=== PATIENT | female | born 1940 | race Caucasian/White ===

== ENCOUNTER 2018-03-18 09:09 | Day surgery (SDC) | payer OTHER ==
[2018-03-18] MEDS: TETRACAINE 0.5% UNIT-DOSE OP PRN ×2 (10:10→10:49)
[2018-03-18] MEDS: BETADINE OPTH PREP OP PRN ×2 (10:10→10:49)
[2018-03-18] MEDS: CYCLOGYL 2% OPTH OP PRN ×3 (10:11→10:21)
[2018-03-18] MEDS ORDERED: DEX-MOXI-KETOR OPTH INJ 1/0.5/0.4 MG/ML IO ONE (10:19)
[2018-03-18] MEDS ORDERED: ZOFRAN 4 MG/2 ML IVP ONE (10:19)
[2018-03-18] MEDS ORDERED: BSS WITH EPINEPHRINE OP ONE (10:19)
[2018-03-18] MEDS ORDERED: BRIMONIDINE TARTRATE 0.2% OPTH SOL OP PRN (10:19)
[2018-03-18] MEDS ORDERED: LIDOCAINE 1%/PHENYLEPHRINE 1.5% BSS (SURGERY) INTRAOCULA ONE (10:19)
[2018-03-18] MEDS ORDERED: LIDOCAINE 1% 20 ML MDV ID STA (10:19)
[2018-03-18] MEDS ORDERED: VERSED ONE (11:10)
[2018-03-18] MEDS ORDERED: SUBLIMAZE ONE (11:10)
[2018-03-18 15:31] VITALS: BP 121/67
[2018-03-20 12:02] VITALS: TEMP 98.6
== END 2018-03-18 12:10 | disposition home or self-care (01) ==
LOC: SURG 09:09
PROVIDERS: ATTEND Ophthalmology
DX: H25.812 Combined forms of age-related cataract, left eye (principal)

== ENCOUNTER 2018-04-01 08:34 | Day surgery (SDC) ==
[2018-04-01] MEDS: TETRACAINE 0.5% UNIT-DOSE OP PRN ×2 (10:00→10:27)
[2018-04-01] MEDS: BETADINE OPTH PREP OP PRN ×2 (10:00→10:27)
[2018-04-01] MEDS: CYCLOGYL 2% OPTH OP PRN ×3 (10:01→10:11)
[2018-04-01] MEDS ORDERED: LIDOCAINE 1% 20 ML MDV ID STA (10:06)
[2018-04-01] MEDS ORDERED: BSS WITH EPINEPHRINE OP ONE (10:06)
[2018-04-01] MEDS ORDERED: ZOFRAN 4 MG/2 ML IVP ONE (10:06)
[2018-04-01] MEDS ORDERED: DEX-MOXI-KETOR OPTH INJ 1/0.5/0.4 MG/ML IO ONE (10:06)
[2018-04-01] MEDS ORDERED: BRIMONIDINE TARTRATE 0.2% OPTH SOL OP PRN (10:06)
[2018-04-01] MEDS ORDERED: LIDOCAINE 1%/PHENYLEPHRINE 1.5% BSS (SURGERY) INTRAOCULA ONE (10:06)
[2018-04-01] MEDS ORDERED: VERSED ONE (10:45)
[2018-04-01] MEDS ORDERED: ZOFRAN 4 MG/2 ML ONE (10:45)
[2018-04-01] MEDS ORDERED: SUBLIMAZE ONE (10:45)
[2018-04-01 12:27] VITALS: TEMP 98.4
[2018-04-01 16:17] VITALS: BP 128/67
== END 2018-04-01 11:45 | disposition home or self-care (01) ==
LOC: SURG 08:34
PROVIDERS: ATTEND Ophthalmology
DX: H25.811 Combined forms of age-related cataract, right eye (principal)